=== PATIENT | female | born 1940 | race Hispanic/Latino ===

== ENCOUNTER 2017-08-03 14:14 | Outpatient (CLI) | payer MEDICARE ==
--- NOTE | 2017-08-03 16:27 | MMO ---
LEFT BREAST SCREENING MAMMOGRAM: Date: 08/03/17 HISTORY: 77-year-old female. Routine screening mammogram. COMPARISON: 12/24/15, 12/08/14, 07/24/14. TECHNIQUE: CC and MLO views of left breast submitted for interpretation. This patient's mammogram was reviewed with the assistance of computer-aided detection. FINDINGS: Left breast is predominantly fatty replaced. No suspicious dominant mass, architectural distortion, or suspicious calcification. There are benign-appearing calcifications in the left breast. IMPRESSION: BIRADS 2: Benign Finding(s) RECOMMENDATION: Annual mammogram. POS: [facility]
== END 2017-08-03 14:15 | disposition home or self-care (01) ==
LOC: MAMMO 14:14
PROVIDERS: ATTEND Family Medicine
DX: Z12.31 Encounter for screening mammogram for malignant neoplasm of breast (principal)
CPT/HCPCS: 77067; G0202

== ENCOUNTER 2018-05-01 12:01 | Outpatient (CLI) | payer MEDICARE | END 2018-05-01 12:02 | disposition home or self-care (01) | LOC: BICMAMMO 12:01 | PROVIDERS: ATTEND Family Medicine | DX: M81.0 Age-related osteoporosis without current pathological fracture (principal); M85.88 Other specified disorders of bone density and structure, other site | CPT/HCPCS: 77080 ==

== ENCOUNTER 2018-09-21 09:04 | Emergency (ER) | payer MEDICARE ==
[2018-09-21 09:27] LABS: #Lymphocytes 0.7 thou/uL (1.20-3.40); #Monocytes 0.3 thou/uL (0.11-0.59); #Neutrophils 5.9 thou/uL (1.40-6.50); %Basophils 0.5 % (0.0-1.0); %Eosinophils 0.6 % (0.0-10.0); %Lymphocytes 9.5 % (21.0-51.0); %Monocytes 4.6 % (0.0-10.0); %Neutrophils 84.8 % (42.0-75.0); Hemoglobin 12.3 g/dL (12.0-16.0); Mean Corpuscular HGB CONC 33.4 g/dL (32.0-36.0); Mean Corpuscular Hemoglobin 31.3 pg (27.0-31.0); Mean Corpuscular Volume 93.8 fL (78.0-98.0); Mean Platelet Volume 8.3 fL (7.4-10.4); Platelet Count 184 thou/uL (130-400); RBC Distribution Width 12.3 % (11.5-14.5); Red Blood Cell (RBC) Count 3.93 mill/uL (4.20-5.40)
[2018-09-21 09:44] LABS: ALT (SGPT) 9 U/L (8-55); AST (SGOT) 16 U/L (5-34); Albumin 4.5 g/dL (3.4-4.8); Alkaline Phosphatase 63 U/L (40-150); Anion Gap 12 mmol/L (10-20); BUN (Urea Nitrogen) 23 mg/dL (9.8-20.1); Bilirubin, Total 0.8 mg/dL (0.2-1.2); Calc. Creatinine Clearance 0 mL/min (70-130); Calcium 9.6 mg/dL (7.8-10.44); Carbon Dioxide 26 mmol/L (23-31); Chloride 103 mmol/L (98-107); Estimated GFR-MDRD 44; Globulin 2.6 g/dL (2.4-3.5); Glucose 128 mg/dL (83-110); Protein, Total 7.1 g/dL (6.0-8.3); Sodium 137 mmol/L (136-145)
[2018-09-21 10:10] LABS: Bilirubin Negative (Negative); Blood, Urine Negative (Negative); Clarity CLEAR (Clear); Glucose, Urine (Dipstick) Negative (Negative); Leukocyte Negative (Negative); Nitrite Negative (Negative); Protein, Urine (Dipstick) Trace mg/dL (Neg-Trace); Specific Gravity, Urine 1.022 (1.002-1.036); pH, Urine 7.5 (5.0-9.0)
[2018-09-21] MEDS ORDERED: Ondansetron PF 4 MG/2 ML Vial ONE (10:17)
--- NOTE | 2018-09-24 14:01 | EKG ---
Test Reason : Blood Pressure : / mmHG Vent. Rate : 071 BPM Atrial Rate : 071 BPM P-R Int : 164 ms QRS Dur : 090 ms QT Int : 384 ms P-R-T Axes : 026 055 044 degrees QTc Int : 417 ms Normal sinus rhythm Normal ECG Confirmed by JESUSITA PATRICK, GAIL ([id number]), brands editor BJ CAMPBELL ([id number]) on 09/24/2018 2:00:37 PM Referred By: Confirmed By:GAIL MC MD
== END 2018-09-21 12:28 | disposition home or self-care (01) ==
LOC: ERS 09:04
DX: E86.0 Dehydration (principal); R11.2 Nausea with vomiting, unspecified; R19.7 Diarrhea, unspecified; E11.9 Type 2 diabetes mellitus without complications; E78.5 Hyperlipidemia, unspecified; I10 Essential (primary) hypertension; Z79.899 Other long term (current) drug therapy; Z79.84 Long term (current) use of oral hypoglycemic drugs
CPT/HCPCS: 36415; 80053; 81003; 83690; 85025; 87077; 87086; 93005; 96361; 96374; J2405

== ENCOUNTER 2018-11-08 09:55 | Outpatient (CLI) | payer MEDICARE | END 2018-11-08 09:56 | disposition home or self-care (01) | LOC: BICMAMMO 09:55 | PROVIDERS: ATTEND Family Medicine | DX: Z12.31 Encounter for screening mammogram for malignant neoplasm of breast (principal); Z85.3 Personal history of malignant neoplasm of breast | CPT/HCPCS: 77063; 77067 ==

== ENCOUNTER 2020-02-20 10:59 | Outpatient (CLI) | payer MEDICARE, OTHER ==
[2020-02-20 13:59] LABS: INR-International Normal Ratio 0.9; PTT 27.4 SEC (22.9-36.1); Prothrombin Time 11.6 sec (12.0-14.7)
[2020-02-20 14:16] LABS: #Basophils 0.1 thou/uL (0.0-0.2); #Eosinphils 0.1 thou/uL (0.0-0.7); #Lymphocytes 2.2 thou/uL (1.20-3.40); #Monocytes 0.4 thou/uL (0.11-0.59); #Neutrophils 5.1 thou/uL (1.40-6.50); %Eosinophils 1.2 % (0.0-10.0); %Lymphocytes 28.1 % (21.0-51.0); %Monocytes 5.5 % (0.0-10.0); %Neutrophils 64.2 % (42.0-75.0); Hemoglobin 12.9 g/dL (12.0-16.0); Mean Corpuscular HGB CONC 32.5 g/dL (32.0-36.0); Mean Corpuscular Hemoglobin 31.6 pg (27.0-31.0); Mean Corpuscular Volume 97.2 fL (78.0-98.0); Mean Platelet Volume 9.4 fL (7.4-10.4); Platelet Count 218 thou/uL (130-400); RBC Distribution Width 12.6 % (11.5-14.5); Red Blood Cell (RBC) Count 4.08 mill/uL (4.20-5.40); White Blood Cell (WBC) Count 7.9 thou/uL (4.8-10.8)
[2020-02-20 14:22] LABS: Hemoglobin A1c 5.8 % (4.0-6.0)
[2020-02-20 14:36] LABS: ALT (SGPT) 10 U/L (8-55); AST (SGOT) 18 U/L (5-34); Albumin 5.1 g/dL (3.4-4.8); Alkaline Phosphatase 63 U/L (40-110); Anion Gap 15 mmol/L (10-20); BUN (Urea Nitrogen) 24 mg/dL (9.8-20.1); Bilirubin, Total 0.6 mg/dL (0.2-1.2); Calc. Creatinine Clearance 0 mL/min (70-130); Calcium 10.3 mg/dL (7.8-10.44); Carbon Dioxide 26 mmol/L (23-31); Cardiac Risk 3.1 (Less than 4.5); Chloride 104 mmol/L (98-107); Cholesterol 225 mg/dl (< 200 Desired); Estimated GFR-MDRD 39; Globulin 2.7 g/dL (2.4-3.5); Glucose 100 mg/dL (83-110); HDL Cholesterol 72 mg/dL (>60 Neg Risk); LDL Cholesterol, Calculated 123 mg/dL; Potassium 4.6 mmol/L (3.5-5.1); Protein, Total 7.8 g/dL (6.0-8.3); Sodium 140 mmol/L (136-145); Triglycerides 148 mg/dL (Less than 150)
[2020-02-20 14:58] LABS: Free T4 (Free Thyroxine) 0.98 ng/dL (0.70-1.48); Thyroid Stimulating Hormone 1.5832 uIU/mL (0.35-4.94)
--- NOTE | 2020-02-20 15:05 | RAD ---
TWO VIEW CHEST: 02/20/20 INDICATIONS: Preop clearance. COMPARISON: 02/28/17. Lung alejandro are clear. Heart and mediastinum unremarkable. Numerous surgical clips in the right axill a again noted with evidence of right mastectomy. Osseous structures unremarkable. Degenerative spurri ng changes appear stable. IMPRESSION: No acute process. POS: [facility]
[2020-02-20 15:12] LABS: Creatinine, Urine 96.84 mg/dL (47-110); Microalbumin Urine Less than 1.0 mg/dL (0.5-50.0)
== END 2020-02-20 11:00 | disposition home or self-care (01) ==
LOC: SCSRAD 10:59
PROVIDERS: ATTEND Family Medicine
DX: Z01.818 Encounter for other preprocedural examination (principal); E11.29 Type 2 diabetes mellitus with other diabetic kidney complication
CPT/HCPCS: 71046; 80053; 80061; 82043; 83036; 84439; 84443; 85025; 85610; 85730

== ENCOUNTER 2020-03-04 07:02 | Outpatient (CLI) | payer MEDICARE, OTHER ==
[2020-03-04 13:58] LABS: #Basophils 0.1 thou/uL (0.0-0.2); #Eosinphils 0.1 thou/uL (0.0-0.7); #Lymphocytes 2.3 thou/uL (1.20-3.40); #Monocytes 0.5 thou/uL (0.11-0.59); #Neutrophils 4.1 thou/uL (1.40-6.50); %Basophils 1.2 % (0.0-1.0); %Eosinophils 1.9 % (0.0-10.0); %Lymphocytes 32.1 % (21.0-51.0); %Monocytes 6.4 % (0.0-10.0); %Neutrophils 58.5 % (42.0-75.0); Hemoglobin 11.5 g/dL (12.0-16.0); Mean Corpuscular HGB CONC 31.8 g/dL (32.0-36.0); Mean Corpuscular Hemoglobin 30.9 pg (27.0-31.0); Mean Corpuscular Volume 97.2 fL (78.0-98.0); Mean Platelet Volume 9.4 fL (7.4-10.4); Platelet Count 198 thou/uL (130-400); RBC Distribution Width 12.3 % (11.5-14.5); Red Blood Cell (RBC) Count 3.71 mill/uL (4.20-5.40); White Blood Cell (WBC) Count 7.1 thou/uL (4.8-10.8)
[2020-03-04 14:08] LABS: INR-International Normal Ratio 0.9; Prothrombin Time 12.4 sec (12.0-14.7)
[2020-03-04 14:09] LABS: Bacteria/HPF None Seen HPF (None Seen); Bilirubin Negative (Negative); Blood, Urine Negative (Negative); Clarity Clear (Clear); Glucose, Urine (Dipstick) Normal (Negative); Leukocyte Negative Leu/uL (Negative); Nitrite Negative (Negative); Protein, Urine (Dipstick) Negative (Neg-Trace); RBC/HPF 0-3 HPF (0-3); Squamous Epithelial 0-3 HPF (0-3); Urobilinogen Normal mg/dL (Less than 2); WBC/HPF 0-3 HPF (0-3)
[2020-03-04 14:42] LABS: Anion Gap 13 mmol/L (10-20); BUN (Urea Nitrogen) 21 mg/dL (9.8-20.1); Calc. Creatinine Clearance 0 mL/min (70-130); Calcium 9.6 mg/dL (7.8-10.44); Carbon Dioxide 22 mmol/L (23-31); Chloride 106 mmol/L (98-107); Estimated GFR-MDRD 43; Glucose 89 mg/dL (83-110); Potassium 3.9 mmol/L (3.5-5.1); Sodium 137 mmol/L (136-145)
[2020-03-05 10:39] LABS: SARS-CoV-2 MS2 Positive; SARS-CoV-2 N Gene Negative; SARS-CoV-2 S Gene Negative; SARS-CoV-2 orf1ab Negative
== END 2020-03-04 07:03 | disposition home or self-care (01) ==
LOC: LABBT 07:02
PROVIDERS: ATTEND Orthopaedic Surgery
DX: Z01.818 Encounter for other preprocedural examination (principal); Z11.59 Encounter for screening for other viral diseases; M17.12 Unilateral primary osteoarthritis, left knee
CPT/HCPCS: 80048; 81001; 85025; 85610; 87081; 87086; 93005; U0003; 87635; 93010

== ENCOUNTER 2020-03-08 05:45 | Day surgery (SDC) | payer MEDICARE, OTHER ==
--- NOTE | 2020-03-04 09:10 | HP ---
HISTORY OF PRESENT ILLNESS: The patient is an 80-year-old female with a long history of progressive degenerative arthritis of the left knee, unresponsive to conservative treatment. There has been no injury. She has had persistent symptoms despite rest, restriction of activities, anti-inflammatory medications including meloxicam and previous injections. Pain is now interfering with day-to-day activities including walking, getting dressed, and sleeping. PAST MEDICAL HISTORY: The patient is otherwise in reasonably good health. She does have a history of diabetes and hypertension. She lives with her son, who is recovering from cancer and will not be in good enough health to provide necessary postoperative care. The patient no longer drives. CURRENT MEDICATIONS: Include low-dose aspirin, multivitamins, metformin, simvastatin, and lisinopril. ALLERGIES: SHE IS ALLERGIC TO LEVAQUIN. FAMILY HISTORY: Otherwise unremarkable. SOCIAL HISTORY: Otherwise unremarkable. REVIEW OF SYSTEMS: Otherwise unremarkable. PHYSICAL EXAMINATION: GENERAL: An elderly healthy female. HEENT: Unremarkable. NECK: Supple. CHEST: Clear. HEART: Regular rate and rhythm. ABDOMEN: Soft and nontender. PELVIC: Deferred. RECTAL: Deferred. BREASTS: Deferred. EXTREMITIES: Pertinent findings of the left knee, there is puffiness. No effusion. There is moderate varus deformity. There are tenderness and crepitus over the medial joint line. There is no instability. Range of motion is 2 to 110 degrees. Distal pulses are 2+. There is a left antalgic gait. There is no pain with range of motion of the left hip. Neurovascular exam is intact. DIAGNOSTIC STUDIES: X-rays of the left knee reveal [id number] collapse medially. IMPRESSION: 1. Degenerative arthritis, left knee. 2. Type 2 diabetes. 3. Hypertension. 4. Poor postoperative care available at home. PLAN: Left total knee replacement. The nature of the surgery, length of recovery, potential complications such as infection, loss of motion, incomplete relief, delayed wound healing, neurovascular injury, thromboembolic phenomena, possible transfusion, need for revision have been discussed in detail. She may require longer hospital stay following surgery since her son, who is her only accessible and primary caregiver is currently recovering from cancer and is in poor health and unable to provide necessary postoperative care. Job ID: [id number]
[2020-03-08] MEDS ORDERED: Sodium Chloride 0.9% 100 ML ONE (06:00)
[2020-03-08] MEDS ORDERED: Vancomycin 1 GM/200 ML BAG ONE (06:00)
[2020-03-08] MEDS ORDERED: Tranexamic Acid 1,000 MG/10 ML VIAL ONE ×2 (06:00→08:55)
[2020-03-08] MEDS ORDERED: Fentanyl 100 MCG/2 ML VIAL ONE ×2 (06:10→07:12)
[2020-03-08] MEDS ORDERED: Midazolam HCl 2 mg/2 ml Vial ONE (07:02)
[2020-03-08] MEDS ORDERED: Bupivacaine 0.25% HCL 30 ML VIAL ONE (07:45)
[2020-03-08] MEDS ORDERED: Lidocaine 1% w/Epinephrine 1:100K 20 ML VIAL ONE (07:45)
[2020-03-08] MEDS ORDERED: Acetaminophen 325 MG TAB PO PRN ×2 (07:53→10:16)
[2020-03-08] MEDS ORDERED: Fentanyl 100 MCG/2 ML VIAL IV PRN (07:53)
[2020-03-08] MEDS ORDERED: Zolpidem Tartrate 5 MG TAB PO PRN ×2 (07:53→10:16)
[2020-03-08] MEDS ORDERED: Ondansetron PF 4 MG/2 ML Vial IVP PRN ×2 (07:53→10:16)
[2020-03-08] MEDS ORDERED: Promethazine HCl 25 MG/ML VIAL IM PRN ×2 (07:53→08:49)
[2020-03-08] MEDS ORDERED: traMADol HCl 50 MG TAB PO PRN ×4 (07:53→10:16)
[2020-03-08] MEDS ORDERED: Ropivacaine HCl/PF 250 ML in Premix Bag 1 BAG NERVE BLCK SCH (07:53)
[2020-03-08] MEDS ORDERED: HYDROcodone/Acetaminophen 10/325 mg Tablet PO PRN ×2 (07:53)
[2020-03-08] MEDS ORDERED: Promethazine HCl 25 MG/ML VIAL SLOW IVP PRN ×2 (08:49→10:16)
[2020-03-08] MEDS ORDERED: Ondansetron HCl/PF 4 MG/2 ML Vial IVP PRN (08:49)
[2020-03-08] MEDS ORDERED: Tranexamic Acid 1,000 MG in Sodium Chloride 0.9% 100 ML IVPB SCH ×2 (09:00→10:16)
--- NOTE | 2020-03-08 09:22 | OP ---
DATE OF PROCEDURE: 03/08/2020 STRAW BOSS: Alix Morris PA-C ANESTHESIA: General plus adductor canal and sciatic nerve blocks. PREOPERATIVE DIAGNOSIS: Degenerative arthritis, left knee. POSTOPERATIVE DIAGNOSIS: Degenerative arthritis, left knee. PROCEDURE PERFORMED: Left total knee replacement with computer-assisted navigation with cemented [place] [employer] components (#4 femoral component, #3 primary tibial baseplate with 9 mm CS plastic insert, and all-plastic A29 patellar component). DESCRIPTION OF PROCEDURE: After satisfactory anesthesia was induced in supine position, sequential compression device was placed on the nonoperative leg throughout the procedure. The left leg was then prepped and draped in routine manner. The left leg was elevated, exsanguinated with an Esmarch bandage, and the tourniquet was inflated to 250 mmHg. A gently curved medial parapatellar incision was made, carried down to subcutaneous tissues. Bleeding points were controlled with Bovie cautery. Medial parapatellar arthrotomy was performed. Patella was carried laterally and portions of the fat pad were excised for exposure. There was marked degenerative arthritis of the knee especially medially with large areas of exposed bone. Meniscal remnants and osteophytes were removed. Using the [employer] pinless navigation system and the appropriate guides, the distal femoral and proximal tibial articular surfaces were excised with an oscillating saw to accept the trial components. It was felt #4 femoral component and #3 tibial baseplate with 9 mm CS plastic insert gave appropriate size, fit, stability, and correction of the preoperative deformity. The patellar articular surface was excised to accept all-plastic A29 patellar component. There was good range of motion and good patellar tracking. The trial components were removed. The knee was copiously irrigated with pulsatile lavage. The bony surfaces were thoroughly cleaned and dried. The permanent components were then cemented in a single stage using one package of cement premixed with 1 g of tobramycin powder. Excess cement was removed. There was again good fit and stability of the components. The wound was again copiously irrigated. The medial retinaculum and quadriceps mechanism were closed with interrupted #2 Vicryl and a running #2 Quill. The skin was infiltrated with a mixture of 30 mL of 0.25% plain Marcaine and 20 mL of 1% plain lidocaine with epinephrine. The subcutaneous tissues were closed with a running 0 Quill suture and the skin was closed with a running subcuticular 3-0 Monoderm and Surgiseal skin adhesive. A sterile bulky compressive dressing was applied. The tourniquet was deflated after 56 minutes. The foot promptly pinked up. Sequential compression devices applied to her operated leg and she was awakened and taken to the recovery room in stable condition. There were no apparent intraoperative complications. The estimated blood loss was less than 100 mL. Job ID: [id number]
--- NOTE | 2020-03-08 09:36 | RAD ---
PORTABLE LEFT KNEE 2 VIEWS: HISTORY: Postop right knee replacement. FINDINGS/IMPRESSION: There are recent postop changes of total knee arthroplasty in good position and alignment. Soft tiss ue air is present. POS: [facility]
[2020-03-08] MEDS ORDERED: HYDROcodone/Acetaminophen 5/325 mg Tablet PO PRN ×2 (10:16)
[2020-03-08] MEDS ORDERED: Fentanyl 100 MCG/2 ML VIAL SLOW IVP PRN ×2 (10:16)
[2020-03-08] MEDS ORDERED: diphenhydrAMINE 25 MG CAP PO PRN (10:16)
[2020-03-08] MEDS: Sodium Chloride 0.9% 1,000 ML IV SCH ×2 (10:30→21:05)
[2020-03-08] MEDS ORDERED: Dextrose 50% Abboject 50 ML SYRINGE SLOW IVP PRN (10:40)
[2020-03-08] MEDS ORDERED: HumaLOG 300 UNITS/3 ML VIAL SC PRN (10:40)
[2020-03-08] MEDS ORDERED: Dextrose 5% in Water 1,000 ML IV PRN (10:40)
[2020-03-08] MEDS ORDERED: Aspirin 81 mg Enteric Coated Tablet PO SCH (10:45)
[2020-03-08] MEDS ORDERED: metFORMIN 500 MG TAB PO SCH (10:45)
[2020-03-08] MEDS: Ketorolac Tromethamine 30 MG/ML VIAL IVP SCH ×3 (11:43→23:11)
[2020-03-08] MEDS ORDERED: PROPOFOL 200 MG/20 ML VIAL ONE (12:01)
[2020-03-08] MEDS ORDERED: EPHEDRINE 25 MG/5 ML SYRINGE ONE (12:01)
[2020-03-08] MEDS ORDERED: Bupivacaine HCl 0.5%/Epinephrine 1:200,000/PF 30 ml Vial ONE (12:01)
[2020-03-08] MEDS ORDERED: Ondansetron PF 4 MG/2 ML Vial ONE (12:01)
[2020-03-08] MEDS ORDERED: Ropivacaine 0.2% HCl/PF (40 MG/20 ML VIAL) ONE (12:01)
[2020-03-08] MEDS ORDERED: Lidocaine 1% PF 5 ML VIAL ONE (12:01)
[2020-03-08] MEDS: CEFAZOLIN 2 GM in Premix Bag 1 BAG IVPB SCH ×2 (14:32→21:04)
[2020-03-08] MEDS ORDERED: Vancomycin 1 GM in Premix Bag 1 BAG IVPB SCH (18:00)
[2020-03-08] MEDS ORDERED: Enoxaparin Sodium 40 MG/0.4 ML SYRINGE SC SCH (21:00)
[2020-03-08] MEDS: Atorvastatin Calcium 20 MG TAB PO SCH (21:04)
[2020-03-08] MEDS: Aspirin 81 mg Enteric Coated Tablet PO SCH (21:04)
[2020-03-09 05:28] LABS: Hemoglobin 10.1 g/dL (12.0-16.0); Mean Corpuscular HGB CONC 33.3 g/dL (32.0-36.0); Mean Corpuscular Hemoglobin 32.3 pg (27.0-31.0); Mean Corpuscular Volume 96.8 fL (78.0-98.0); Mean Platelet Volume 9.3 fL (7.4-10.4); Platelet Count 155 thou/uL (130-400); RBC Distribution Width 12.4 % (11.5-14.5); Red Blood Cell (RBC) Count 3.13 mill/uL (4.20-5.40); White Blood Cell (WBC) Count 7.9 thou/uL (4.8-10.8)
[2020-03-09] MEDS: Ketorolac Tromethamine 30 MG/ML VIAL IVP SCH ×3 (06:12→18:13)
[2020-03-09] MEDS: Sodium Chloride 0.9% 1,000 ML IV SCH ×2 (06:16→16:53)
[2020-03-09] MEDS: metFORMIN 500 MG TAB PO SCH (07:50)
[2020-03-09] MEDS: Lisinopril 20 MG TAB PO SCH (07:55)
[2020-03-09] MEDS: Senokot S 8.6-50 MG TAB PO SCH ×2 (07:55→20:15)
[2020-03-09] MEDS: Multivitamin W/ Minerals 1 TAB PO SCH (07:55)
[2020-03-09] MEDS: Aspirin 81 mg Enteric Coated Tablet PO SCH ×2 (07:55→20:15)
[2020-03-09 11:16] VITALS: BMI 22.8
[2020-03-09] MEDS: Atorvastatin Calcium 20 MG TAB PO SCH (20:15)
[2020-03-10] MEDS: Ketorolac Tromethamine 30 MG/ML VIAL IVP SCH ×2 (00:02→05:59)
[2020-03-10] MEDS: Sodium Chloride 0.9% 1,000 ML IV SCH ×2 (02:21→08:46)
[2020-03-10] MEDS: metFORMIN 500 MG TAB PO SCH (08:41)
[2020-03-10] MEDS: Aspirin 81 mg Enteric Coated Tablet PO SCH (08:41)
[2020-03-10] MEDS: Lisinopril 20 MG TAB PO SCH (08:42)
[2020-03-10] MEDS: Multivitamin W/ Minerals 1 TAB PO SCH (08:42)
[2020-03-10] MEDS: Senokot S 8.6-50 MG TAB PO SCH (08:42)
[2020-03-10 11:53] VITALS: BP 130/67; TEMP 97.5
== END 2020-03-10 14:56 | disposition home or self-care (01) ==
LOC: SDC 05:45 → SJJU 09:53 → SDC 03-10 14:56
PROVIDERS: ATTEND Orthopaedic Surgery
PROC: 0SRD0J9 Replacement of Left Knee Joint with Synthetic Substitute, Cemented, Open Approach (ICD-10-PCS; principal; 2020-03-08)
PROC: 8E0YXBZ Computer Assisted Procedure of Lower Extremity (ICD-10-PCS; 2020-03-08)
PROC: 3E0T3BZ Introduction of Anesthetic Agent into Peripheral Nerves and Plexi, Percutaneous Approach (ICD-10-PCS; 2020-03-08)
PROC: 3E0T3BZ Introduction of Anesthetic Agent into Peripheral Nerves and Plexi, Percutaneous Approach (ICD-10-PCS; 2020-03-08)
DX: M17.12 Unilateral primary osteoarthritis, left knee (principal); G89.18 Other acute postprocedural pain; E11.9 Type 2 diabetes mellitus without complications; I10 Essential (primary) hypertension; Z79.82 Long term (current) use of aspirin; Z79.84 Long term (current) use of oral hypoglycemic drugs; Z79.899 Other long term (current) drug therapy; Z88.1 Allergy status to other antibiotic agents; Z91.048 Other nonmedicinal substance allergy status
CPT/HCPCS: 20985; 27447; 64445; 64448; 73560; 82962; 85027; 97110 ×2; 97116 ×3; 97139 ×3; 97530 ×2; C1713; C1776; 36415; 36416; J0670; J0690; J1885; J2001; J2250; J2405; J2704; J2795; J3010; J3370; J3490; S0020

== ENCOUNTER 2021-03-14 09:24 | Outpatient (CLI) | payer MEDICARE, OTHER | END 2021-03-14 09:25 | disposition home or self-care (01) | LOC: BICMRI 09:24 | PROVIDERS: ATTEND Family Medicine | DX: E11.29 Type 2 diabetes mellitus with other diabetic kidney complication (principal) | CPT/HCPCS: 70551 ==

== ENCOUNTER 2021-09-15 07:56 | Outpatient (CLI) | payer MEDICARE, OTHER | END 2021-09-15 07:57 | disposition home or self-care (01) | LOC: BICMAMMO 07:56 | PROVIDERS: ATTEND Family Medicine | DX: Z12.31 Encounter for screening mammogram for malignant neoplasm of breast (principal); Z13.820 Encounter for screening for osteoporosis; Z78.0 Asymptomatic menopausal state; Z90.11 Acquired absence of right breast and nipple; M85.89 Other specified disorders of bone density and structure, multiple sites | CPT/HCPCS: 77063; 77067; 77080 ==